=== PATIENT | female | born 1940 | race Caucasian/White ===

== ENCOUNTER 2021-11-17 08:25 | Inpatient (IN) | payer MEDICARE, OTHER, SELFPAY ==
--- NOTE | ~2021-11-17 | CT_ITS ---
PROCEDURE: CT-GUIDED BIOPSY, LIVER CLINICAL INFORMATION: Gallstones and hypodense mass right hepatic lobe adjacent to the gallbladder. Primary versus metastatic. COMPARISON: MRI, CT and ultrasound abdomen 11/17/2021. TECHNIQUE: Following explaining CT-guided right hepatic lobe mass biopsy procedure, benefits and risk, a written consent was obtained. Patient was placed supine on ultrasound stretcher and preliminary CT imaging was obtained through the upper abdomen. An optimal site was selected along the right lateral abdomen and marked on the skin with a marker. The marked site was cleaned and draped in the usual sterile manner. 1% lidocaine was injected at puncture site. Through a small skin incision an 18-gauge guide needle was advanced into the right hepatic lobe adjacent to lesion. Coaxially an 18-gauge biopsy needle was advanced and a 3-pass core biopsy was performed. Postprocedure needle was withdrawn and complete hemostasis achieved. Immediately after removing the needle patient had a vasovagal attack and recovered within [address] examination was performed using dose optimization techniques as appropriate, variously including the following: *Automated exposure control *Adjustment of mA and/or kV according to patient size (this includes techniques or standardized protocols for targeted exams where dose is matched to indication/reason for exam; i.e. extremities or head) *Use of iterative reconstruction technique DLP: 256 mGy-cm FINDINGS: On CT imaging there are multiple gallstones. There is a large right hepatic lobe hypodense adjacent mass. CT fluoroscopy-guided right hepatic lobe core biopsy was performed coaxially. Approximately 3 passes were performed and sent to lab in alcohol solution. There was no immediate bleeding seen. CT/CT biopsy liver IMPRESSION: Successful CT fluoroscopy-guided right hepatic lobe mass core biopsy performed. Patient had vasovagal reaction after removing the needle. Patient had full recovery in 10 to 15 minutes postprocedure.
--- NOTE | ~2021-11-17 | CT_ITS ---
EXAMINATION: CT ABDOMEN AND PELVIS WITHOUT CONTRAST CLINICAL INFORMATION: Elevated LFTs. Abdominal pain COMPARISON: Ultrasound abdomen same date TECHNIQUE: Multidetector volumetric imaging was performed from the superior aspect of the liver through the pubic symphysis. Sagittal and coronal reformatted images were obtained on the technologist's workstation. This CT examination was performed using dose optimization techniques as appropriate, variously including the following: *Automated exposure control *Adjustment of mA and/or kV according to patient size (this includes techniques or standardized protocols for targeted exams where dose is matched to indication/reason for exam; i.e. extremities or head) *Use of iterative reconstruction technique DLP: 693 mGy-cm FINDINGS: LUNG BASES: The visualized lung bases are unremarkable. LIVER, GALLBLADDER, AND BILIARY TREE: There is a very heterogeneous attenuation pattern observed, in the medial left lobe of the liver extending towards the gallbladder fossa. Similar findings extend towards the anterior right lobe of the liver. MRI with gadolinium is advised for further clarification. There is underlying steatosis. Abnormal. The gallbladder is distended and filled with multiple stones. Gallbladder wall thickening and pericholecystic fluid is seen in a pattern consistent with acute cholecystitis. PANCREAS: Unremarkable. SPLEEN: Unremarkable. ADRENAL GLANDS: Unremarkable. KIDNEYS AND URETERS: The kidneys are normal in size, shape, and attenuation. No hydronephrosis, hydroureter, or calculi seen. No perinephric stranding. BLADDER: Unremarkable. GASTROINTESTINAL TRACT: The small and large bowel are unremarkable. The appendix is unremarkable. ABDOMINAL WALL: No significant hernia is appreciated. LYMPH NODES: Normal. VASCULAR: Aorta atherosclerotic but nonaneurysmal. PELVIC VISCERA: Senescent uterus. No adnexal masses. OSSEOUS STRUCTURES: Degenerative changes in the lower lumbar spine and mid lumbar spine but no fracture. CT/CT abdomen pelvis wo con IMPRESSION: Abnormal gallbladder suggestive of acute cholecystitis. Abnormal attenuation, in the central portion of the liver suspicious for an infiltrative process. Cross-sectional imaging of the liver with gadolinium-enhanced MRI is advised. Fleischner guidelines were followed.
--- NOTE | ~2021-11-17 | US_ITS ---
EXAMINATION: US ABDOMEN LIMITED CLINICAL INFORMATION: Elevated LFTs and 10 pound weight loss. COMPARISON: CT abdomen and pelvis earlier same day TECHNIQUE: Real-time imaging of the right upper quadrant abdominal viscera. FINDINGS: PANCREAS: The pancreas appears unremarkable, without masses or ductal dilatation, with the exception of the tail which is obscured by bowel gas. A peripancreatic lymph node is present measuring 1.7 x 0.9 x 1.0 cm. LIVER: The liver is normal in size. The liver contour is normal. Parenchymal echogenicity is normal. There is a 4.1 x 4.9 x 5.4 cm heterogeneous slightly hypoechoic mass in the right lobe of the liver with slightly irregular margins. There is no intrahepatic biliary duct dilatation seen. GALLBLADDER: The gallbladder is filled with multiple shadowing calculi with a thickened wall of 0.6 cm. There is a positive Hernandez's sign with tenderness over the gallbladder with compression with the ultrasound probe COMMON BILE DUCT: Mildly dilated measuring 0.8 cm in diameter. RIGHT KIDNEY: Normal. No hydronephrosis. No renal calculi or focal parenchymal lesions. The kidney measures 11.7 cm in maximum dimension. FREE FLUID: None. US/US abdomen limited IMPRESSION: Findings consistent with acute cholecystitis in concordance with the findings seen on the CT scan performed earlier today. The right sided liver mass adjacent to the gallbladder appears more well-defined than it did on the CT scan. Differential diagnosis would include malignancy versus infection. As recommended previously, evaluation with pre and postcontrast dedicated liver MRI may be of utility if this is not biopsied.
--- NOTE | ~2021-11-17 | MR_ITS ---
EXAMINATION: MR ABDOMEN WITHOUT AND WITH CONTRAST/MRCP CLINICAL INFORMATION: Abnormal CT and LFTs. Prior imaging showed findings consistent with acute cholecystitis as well as abnormal liver mass adjacent to the gallbladder, question malignancy versus infection. COMPARISON: Ultrasound of the right upper quadrant dated 11/17/[address] scan of the abdomen and pelvis dated 11/17/2021. TECHNIQUE: An MRI scan of the abdomen was performed using multiple imaging sequences and imaging planes. As per the MRCP protocol, heavily T2-weighted 3-D high-resolution MRCP sequences were obtained in the coronal plane along with thin and thick slab coronal images and coronal MIP reconstructions on the technologist workstation under concurrent physician supervision. Gadavist 7.5 mL intravenous was given and postcontrast enhanced dynamic evaluation was performed. FINDINGS: Evaluation is limited due to motion artifact. MRCP sequences and several of the postcontrast sequences are of limited diagnostic quality. LIVER, GALLBLADDER, BILIARY TREE: As seen on the prior imaging, the gallbladder is markedly abnormal. There are multiple calcified gallstone seen within the gallbladder. There is diffusely gallbladder wall thickening with mucosal hyperenhancement and thick submucosal edema. There is a approximately 3 x 2 cm peripherally rim-enhancing collection seen in or abutting the gallbladder wall (series 10, image 58). There is extensive edema in the surrounding soft tissues, which is also seen extending into the liver. In the central segments 7 and 4, there are multiple large ill-defined and nearly confluent peripherally rim-enhancing T2 bright masses seen with an aggregate size of at least 4.5 x 5 x 5.5 cm. These masses demonstrate arterial phase peripheral rim enhancement, which persists on delayed phases without significant central enhancement seen. On the arterial phase images, there is peripheral and cortical enhancement of the liver, which subsides on delayed phases, suggesting hyperenhancement related to altered perfusion. There is mild central intrahepatic ductal dilatation with the proximal common bile duct measuring up to 0.9 cm. There is extrinsic mass effect upon the mid and distal common bile duct by the abnormal gallbladder. The distal common bile duct is decompressed and not well visualized. There is a benign T2 bright nonenhancing 1 cm peripheral cyst in segment 4 a (series 100, image 28). PANCREAS: Normal. No ductal dilatation, mass, or surrounding stranding. SPLEEN: Normal size and appearance. Splenic vein patent. ADRENAL GLANDS AND KIDNEYS: Adrenal glands normal. Kidneys bilaterally symmetric in size and function. No focal mass, hydronephrosis, or perinephric stranding. BOWEL LOOPS: Grossly within normal limits. ABDOMINAL WALL: There is a tiny fat-containing umbilical hernia. LYMPHOVASCULAR STRUCTURES: Abdominal aorta normal in caliber. No periaortic collections. No abdominal adenopathy or free fluid collection. BONES: There are T2 bright foci seen within the L4, L2, and L1 vertebral bodies, consistent with incidental vertebral hemangiomas. MR/MR abdomen wo/w con IMPRESSION: Markedly abnormal appearance of the gallbladder and adjacent liver as discussed above. In the acute setting and presence of gallstones, acute cholecystitis with associated pericholecystic abscesses with extension into the liver with multiple liver abscesses could have this appearance. However, in discussing this case with Dr. Hall, the patient's presentation is not typical for acute cholecystitis with no significant elevation in white count or fever noted. And in reviewing the ultrasound, the imaging appearance and the liver is not consistent with liver abscesses and would favor solid masses. In this setting, these findings are then highly suspicious for gallbladder cancer with metastatic disease to liver or cholangiocarcinoma with metastatic extension to the gallbladder. Superimposed infection cannot be excluded. Close clinical correlation and surgical consult is requested. This urgent result was discussed with Dr. Hall 11/17/2021, 6:41 PM and it was ascertained that the content and urgency of this report was understood at the time of direct communication.
[2021-11-17 08:52] VITALS: BP 146/70; PULSE 91; RESP 16; TEMP 36.6; O2SAT 96; BMI 32.8
[2021-11-17 09:19] LABS: MANUAL DIFF FLAG NO
[2021-11-17 09:23] LABS: Basophils Percent Auto 0.4 % (0-2); Eosinophils Absolute Auto 0.1 X10*3/uL (0.0-0.4); Eosinophils Percent Auto 1.6 % (0-4); Hematocrit 41.6 % (37.0-47.0); Hemoglobin 13.4 g/dl (12.0-16.0); Imm Gran Abs Auto 0.02 X10*3/uL (0.00-0.03); Imm Gran Pct Auto 0.3 % (0.0-0.4); Lymphocytes Absolute Auto 1.2 X10*3/uL (1.2-4.9); Lymphocytes Percent Auto 17.8 % (20-40); Mean Corpuscular HGB Conc 32.2 g/dl (31.0-35.0); Mean Corpuscular Hemoglobin 29.9 pg (27.0-33.0); Mean Corpuscular Volume 92.9 fL (80.0-98.0); Mean Platelet Volume 9.7 fL (9.4-12.3); Monocytes Absolute Auto 0.6 X10*3/uL (0.1-1.2); Monocytes Percent Auto 9.3 % (2-11); Neutrophils Absolute Auto 4.8 x10*3/uL (2.0-8.3); Neutrophils Percent Auto 70.6 % (45-73); Platelet Count 226 X10*3/uL (160-400); Red Blood Count 4.48 X10*6/uL (4.20-5.50); Red Cell Distribution Width 13.2 % (11.0-16.0); White Blood Count 6.8 X10*3/uL (4.8-10.8)
--- NOTE | 2021-11-17 09:32 | ED_ITS ---
HPI - General Adult General Chief complaint: General Medical Stated complaint: fever, chills, white stool, low back and abd pain Time Seen by Provider: 11/17/21 09:31 Source: patient and family (Daughter) Mode of arrival: ambulatory Limitations: no limitations History of Present Illness HPI narrative: 81 years old female brought in by her daughter for concern of generalized malaise. Patient's symptoms started 7 days ago with generalized malaise, subjective low- grade fever, intermittent bilateral upper abdominal discomfort, lost about 10 lb in 7 days, patient noted that her urine is turning dark and the stool is turning pale in color. No sick contacts, no recent travel, no recent use of antibiotic. No diarrhea. Related Data Allergies Allergy/AdvReac Type Severity Reaction Status Date / Time No Known Allergies Allergy Verified 11/17/21 08:54 Review of Systems Review of Systems: All other systems are reviewed and are negative Constitutional: Reports as per HPI and Reports no additional constitutional complaints Eyes: Reports as per HPI and Reports no additional eye complaints Reports system reviewed and no additional complaints, except as documented Cardiovascular: Reports as per HPI and Reports no additional cardiovascular complaints Respiratory: Reports as per HPI and Reports no additional respiratory complaints Gastrointestinal: Reports as per HPI and Reports no additional gastrointestinal complaints Genitourinary: Reports no additional female genitourinary complaints Musculoskeletal: Reports no additional musculoskeletal complaints Skin/Breast: Reports system reviewed and no additional complaints, except as docu Psychiatric: Reports no additional psychiatric complaints Endocrine: Reports no additional endocrine complaints Hematologic/Lymphatic: Reports no additional hematologic/lymphatic complaints Allergic/Immunologic: Reports no additional allergic/immunologic complaints Reports system reviewed and no additional complaints, except as documented and Reports Abnormal speech present [facility] [place] Social History Social History Advance Directives: No Advance Directives Information Provided: Yes Physical Exam ED Vital Signs: Vital Signs - 24 hr 11/17/21 08:52 11/17/21 11:52 Temperature 97.8 F 97.9 F Pulse Rate 91 82 Respiratory Rate 16 16 Blood Pressure 146/70 H 137/76 Pulse Oximetry 96 96 Oxygen Delivery Method Room Air Room Air BMI result Body Mass Index 32.8 Vital signs have been reviewed as appeared to be correct. Blood pressure normal. Heart rate normal. Respiration rate normal. Temperature normal. Oxygen saturation normal. Appearance: Alert. Oriented X3. No acute distress. Head: Normal external exam. Normocephalic. Atraumatic. No Munoz signs noted. No raccoon eyes noted Eyes: PERRLA. EOMI. Conjunctiva and sclera normal. Eyelids normal. ENT: TM's Normal. Pharynx normal. Uvula midline. Moist mucous membranes. No trismus noted. No drooling noted. No muffled voice noted. Neck: Normal inspection. Neck supple. FROM. No adenopathy. Thyroid Normal. No meningeal signs. No neck mass noted. CVS: Normal heart rate and rhythm. Heart sound normal. No murmurs noted. Pulses normal throughout. Respiratory: No respiratory distress. Painless inspiration. Breath sounds normal. No wheezes/rales/rhonchi noted. Chest nontender. No accessory muscle usage noted or decreased air movement noted. Abdomen: Soft and nontender. Bowel sounds normal in all 4 quadrants. No distention noted. No organomegaly noted. No visible injury noted. Back: No CVA tenderness. Full range of motion noted. Skin: Skin warm and dry. Normal skin color. Normal skin turgor. No rashes/lesions/lacerations noted. Extremities: No lower extremity edema. Extremities exhibit normal range of motion. Extremities nontender. Neuro: Oriented X 3. Cranial nerve exam: II-XII are grossly intact No motor deficit. No sensory deficit. Reflexes normal. 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 Mullen at the bedside recommended to get an MRI for more details of the hepatic mass that was found on the CT. Patient do not meet criteria for SIRS, will cover with empiric antibiotic. Case signed out to . Medical Decision Making Lab Data Lab results reviewed: Yes I reviewed the patient's lab results. Result diagrams: 11/17/21 09:15 11/17/21 09:15 Labs: Lab Results 11/17/21 11/17/21 11/17/21 Range/Units 09:15 09:15 12:00 WBC 6.8 (4.8-10.8) X10*3/uL RBC 4.48 (4.20-5.50) X10*6/uL Hgb 13.4 (12.0-16.0) g/dl Hct 41.6 (37.0-47.0) % MCV 92.9 (80.0-98.0) fL MCH 29.9 (27.0-33.0) pg MCHC 32.2 (31.0-35.0) g/dl RDW 13.2 (11.0-16.0) % Plt Count 226 (160-400) X10*3/uL MPV 9.7 (9.4-12.3) fL Immature Gran % (Auto) 0.3 (0.0-0.4) % Neut % (Auto) 70.6 (45-73) % Lymph % (Auto) 17.8 L (20-40) % [place] % (Auto) 9.3 (2-11) % Eos % (Auto) 1.6 (0-4) % Baso % (Auto) 0.4 (0-2) % Lymph # (Auto) 1.2 (1.2-4.9) X10*3/uL [place] # (Auto) 0.6 (0.1-1.2) X10*3/uL Eos # (Auto) 0.1 (0.0-0.4) X10*3/uL Baso # (Auto) 0.0 (0.0-0.2) X10*3/uL Abs Immat Gran (auto) 0.02 (0.00-0.03) X10*3/uL Absolute Neuts (auto) 4.8 (2.0-8.3) x10*3/uL Absolute Nucleated RBC 0.000 (0.0-0.012) X10*3/uL Nucleated RBC % (auto) 0.0 (0.0-0.2) /100WBC Sodium 141 (135-145) mmol/L Potassium 4.9 (3.3-5.1) mmol/L Chloride 109 H (96-108) mmol/L Carbon Dioxide 24 (22-29) mmol/L Anion Gap 13 (12-20) BUN 11 (9-16) mg/dL Creatinine 0.82 (0.5-1.4) mg/dL Estim Creat Clear Calc 50.7 Estimated GFR > 60 Random Glucose 100 (60-115) mg/dL Calcium 9.0 (8.4-10.2) mg/dL Total Bilirubin 4.7 H (0.0-1.0) mg/dL AST 491 H (5-31) U/L ALT 544 H (0-31) U/L Alkaline Phosphatase 888 H (39-117) U/L Total Protein 8.1 H (6.5-8.0) g/dL Albumin 4.1 (3.5-5.0) g/dL Urine Color YELLOW Urine Appearance CLEAR Urine pH 5.5 (5.0-8.0) Ur Specific [place] <= 1.005 (1.005-1.025) Urine Protein NEG (NEG-TRACE) MG/DL Urine Glucose (UA) NEG (NEG) MG/DL Urine Ketones NEG (NEG) MG/DL Urine Blood NEG (NEG) Urine Nitrite NEG (NEG) Ur Leukocyte Esterase NEG (NEG) COVID-19 (DAMION) (Negative) COVID-19 Clin Com 11/17/21 Range/Units 13:44 WBC (4.8-10.8) X10*3/uL RBC (4.20-5.50) X10*6/uL Hgb (12.0-16.0) g/dl Hct (37.0-47.0) % MCV (80.0-98.0) fL MCH (27.0-33.0) pg MCHC (31.0-35.0) g/dl RDW (11.0-16.0) % Plt Count (160-400) X10*3/uL MPV (9.4-12.3) fL Immature Gran % (Auto) (0.0-0.4) % Neut % (Auto) (45-73) % Lymph % (Auto) (20-40) % [place] % (Auto) (2-11) % Eos % (Auto) (0-4) % Baso % (Auto) (0-2) % Lymph # (Auto) (1.2-4.9) X10*3/uL [place] # (Auto) (0.1-1.2) X10*3/uL Eos # (Auto) (0.0-0.4) X10*3/uL Baso # (Auto) (0.0-0.2) X10*3/uL Abs Immat Gran (auto) (0.00-0.03) X10*3/uL Absolute Neuts (auto) (2.0-8.3) x10*3/uL Absolute Nucleated RBC (0.0-0.012) X10*3/uL Nucleated RBC % (auto) (0.0-0.2) /100WBC Sodium (135-145) mmol/L Potassium (3.3-5.1) mmol/L Chloride (96-108) mmol/L Carbon Dioxide (22-29) mmol/L Anion Gap (12-20) BUN (9-16) mg/dL Creatinine (0.5-1.4) mg/dL Estim Creat Clear Calc Estimated GFR Random Glucose (60-115) mg/dL Calcium (8.4-10.2) mg/dL Total Bilirubin (0.0-1.0) mg/dL AST (5-31) U/L ALT (0-31) U/L Alkaline Phosphatase (39-117) U/L Total Protein (6.5-8.0) g/dL Albumin (3.5-5.0) g/dL Urine Color Urine Appearance Urine pH (5.0-8.0) Ur Specific [place] (1.005-1.025) Urine Protein (NEG-TRACE) MG/DL Urine Glucose (UA) (NEG) MG/DL Urine Ketones (NEG) MG/DL Urine Blood (NEG) Urine Nitrite (NEG) Ur Leukocyte Esterase (NEG) COVID-19 (DAMION) Negative (Negative) COVID-19 Clin Com See Note Imaging Data CT abdomen and pelvis: Attestation: I personally reviewed and interpreted this imaging study as follows: Radiologist's impression: Abnormal gallbladder suggestive of acute cholecystitis. Abnormal attenuation, in the central portion of the liver suspicious for an infiltrative process. Cross-sectional imaging of the liver with gadolinium-enhanced MRI is advised.? ? Abdominal ultrasound: Attestation: I personally reviewed and interpreted this imaging study as follows: Radiologist's impression: Findings consistent with acute cholecystitis in concordance with the findings seen on the CT scan performed earlier today. The right sided liver mass adjacent to the gallbladder appears more well-defined than it did on the CT scan. Differential diagnosis would include malignancy versus infection. As recommended previously, evaluation with pre and postcontrast dedicated liver MRI may be of utility if this is not biopsied. Discharge Plan Discharge Clinical Impression: Liver mass, Acute cholecystitis, Elevated liver function tests Patient Disposition: Admitted As Inpatient
[2021-11-17 09:57] LABS: Alanine Aminotransferase 544 U/L (0-31); Albumin Level 4.1 g/dL (3.5-5.0); Alkaline Phosphatase 888 U/L (39-117); Anion Gap 13 (12-20); Aspartate Amino Transferase 491 U/L (5-31); Bilirubin Total 4.7 mg/dL (0.0-1.0); Blood Urea Nitrogen 11 mg/dL (9-16); Carbon Dioxide 24 mmol/L (22-29); Chloride 109 mmol/L (96-108); Creatinine Clr Calc Pharmacy 50.7; Estimated Glomerular Filt Rate > 60; Glucose Random 100 mg/dL (60-115); Potassium 4.9 mmol/L (3.3-5.1); Sodium 141 mmol/L (135-145); Total Protein 8.1 g/dL (6.5-8.0)
[2021-11-17] MEDS: 0.9 % Sodium Chloride 1,000 ML 999 ML IV (10:04)
[2021-11-17 11:52] VITALS: BP 137/76; PULSE 82; RESP 16; TEMP 36.6; O2SAT 96
[2021-11-17 12:09] LABS: Appearance Urine CLEAR; Color Urine YELLOW; Glucose Urine UA NEG (NEG); Leukocyte Esterase Urine NEG (NEG); Nitrite Urine NEG (NEG); PH 5.5 (5.0-8.0); Specific Gravity - Urine <= 1.005 (1.005-1.025); Urine Blood NEG (NEG); Urine Ketones NEG (NEG); Urine Protein NEG (NEG-TRACE)
[2021-11-17 14:24] LABS: COVID-19 Test Negative (Negative)
[2021-11-17 18:03] LABS: Lactic Acid 0.6 mmol/L (0.5-2.0)
[2021-11-17 18:25] VITALS: BP 150/59; PULSE 86; RESP 16; TEMP 36.8; O2SAT 98
--- NOTE | 2021-11-17 18:41 | ED.GENADULT ---
HPI - General Adult General Chief complaint: General Medical Stated complaint: fever, chills, white stool, low back and abd pain Time Seen by Provider: 11/17/21 09:31 Source: patient and family (Daughter) Mode of arrival: ambulatory Limitations: no limitations Related Data Home Medications Medication Instructions Recorded Confirmed amitriptyline 25 mg tablet 1 tab DAILY 11/17/21 11/17/21 celecoxib 200 mg capsule 1 cap PO DAILY 11/17/21 11/17/21 warfarin 7.5 mg tablet 7.5 mg PO DAILY 11/17/21 11/17/21 Allergies Allergy/AdvReac Type Severity Reaction Status Date / Time No Known Allergies Allergy Verified 11/17/21 08:54 PMFSH Social History Social History Advance Directives: No Advance Directives Information Provided: Yes Physical Exam ED Vital Signs: Vital Signs - 24 hr 11/17/21 08:52 11/17/21 11:52 11/17/21 18:25 Temperature 97.8 F 97.9 F 98.3 F Pulse Rate 91 82 86 Respiratory Rate 16 16 16 Blood Pressure 146/70 H 137/76 150/59 H Pulse Oximetry 96 96 98 Oxygen Delivery Method Room Air Room Air Room Air 11/17/21 21:10 Temperature 97.9 F Pulse Rate 91 Respiratory Rate 16 Blood Pressure 142/68 H Pulse Oximetry 95 Oxygen Delivery Method Room Air BMI result Body Mass Index 32.8 Medical Decision Making Lab Data Result diagrams: 11/17/21 09:15 11/17/21 09:15 Labs: Lab Results 11/17/21 11/17/21 11/17/21 Range/Units 09:15 09:15 12:00 WBC 6.8 (4.8-10.8) X10*3/uL RBC 4.48 (4.20-5.50) X10*6/uL Hgb 13.4 (12.0-16.0) g/dl Hct 41.6 (37.0-47.0) % MCV 92.9 (80.0-98.0) fL MCH 29.9 (27.0-33.0) pg MCHC 32.2 (31.0-35.0) g/dl RDW 13.2 (11.0-16.0) % Plt Count 226 (160-400) X10*3/uL MPV 9.7 (9.4-12.3) fL Immature Gran % (Auto) 0.3 (0.0-0.4) % Neut % (Auto) 70.6 (45-73) % Lymph % (Auto) 17.8 L (20-40) % [place] % (Auto) 9.3 (2-11) % Eos % (Auto) 1.6 (0-4) % Baso % (Auto) 0.4 (0-2) % Lymph # (Auto) 1.2 (1.2-4.9) X10*3/uL [place] # (Auto) 0.6 (0.1-1.2) X10*3/uL Eos # (Auto) 0.1 (0.0-0.4) X10*3/uL Baso # (Auto) 0.0 (0.0-0.2) X10*3/uL Abs Immat Gran (auto) 0.02 (0.00-0.03) X10*3/uL Absolute Neuts (auto) 4.8 (2.0-8.3) x10*3/uL Absolute Nucleated RBC 0.000 (0.0-0.012) X10*3/uL Nucleated RBC % (auto) 0.0 (0.0-0.2) /100WBC Sodium 141 (135-145) mmol/L Potassium 4.9 (3.3-5.1) mmol/L Chloride 109 H (96-108) mmol/L Carbon Dioxide 24 (22-29) mmol/L Anion Gap 13 (12-20) BUN 11 (9-16) mg/dL Creatinine 0.82 (0.5-1.4) mg/dL Estim Creat Clear Calc 50.7 Estimated GFR > 60 Random Glucose 100 (60-115) mg/dL Lactic Acid (0.5-2.0) mmol/L Calcium 9.0 (8.4-10.2) mg/dL Total Bilirubin 4.7 H (0.0-1.0) mg/dL AST 491 H (5-31) U/L ALT 544 H (0-31) U/L Alkaline Phosphatase 888 H (39-117) U/L Total Protein 8.1 H (6.5-8.0) g/dL Albumin 4.1 (3.5-5.0) g/dL Urine Color YELLOW Urine Appearance CLEAR Urine pH 5.5 (5.0-8.0) Ur Specific [place] <= 1.005 (1.005-1.025) Urine Protein NEG (NEG-TRACE) MG/DL Urine Glucose (UA) NEG (NEG) MG/DL Urine Ketones NEG (NEG) MG/DL Urine Blood NEG (NEG) Urine Nitrite NEG (NEG) Ur Leukocyte Esterase NEG (NEG) COVID-19 (DAMION) (Negative) COVID-19 Clin Com 11/17/21 11/17/21 Range/Units 13:44 17:36 WBC (4.8-10.8) X10*3/uL RBC (4.20-5.50) X10*6/uL Hgb (12.0-16.0) g/dl Hct (37.0-47.0) % MCV (80.0-98.0) fL MCH (27.0-33.0) pg MCHC (31.0-35.0) g/dl RDW (11.0-16.0) % Plt Count (160-400) X10*3/uL MPV (9.4-12.3) fL Immature Gran % (Auto) (0.0-0.4) % Neut % (Auto) (45-73) % Lymph % (Auto) (20-40) % [place] % (Auto) (2-11) % Eos % (Auto) (0-4) % Baso % (Auto) (0-2) % Lymph # (Auto) (1.2-4.9) X10*3/uL [place] # (Auto) (0.1-1.2) X10*3/uL Eos # (Auto) (0.0-0.4) X10*3/uL Baso # (Auto) (0.0-0.2) X10*3/uL Abs Immat Gran (auto) (0.00-0.03) X10*3/uL Absolute Neuts (auto) (2.0-8.3) x10*3/uL Absolute Nucleated RBC (0.0-0.012) X10*3/uL Nucleated RBC % (auto) (0.0-0.2) /100WBC Sodium (135-145) mmol/L Potassium (3.3-5.1) mmol/L Chloride (96-108) mmol/L Carbon Dioxide (22-29) mmol/L Anion Gap (12-20) BUN (9-16) mg/dL Creatinine (0.5-1.4) mg/dL Estim Creat Clear Calc Estimated GFR Random Glucose (60-115) mg/dL Lactic Acid 0.6 (0.5-2.0) mmol/L Calcium (8.4-10.2) mg/dL Total Bilirubin (0.0-1.0) mg/dL AST (5-31) U/L ALT (0-31) U/L Alkaline Phosphatase (39-117) U/L Total Protein (6.5-8.0) g/dL Albumin (3.5-5.0) g/dL Urine Color Urine Appearance Urine pH (5.0-8.0) Ur Specific [place] (1.005-1.025) Urine Protein (NEG-TRACE) MG/DL Urine Glucose (UA) (NEG) MG/DL Urine Ketones (NEG) MG/DL Urine Blood (NEG) Urine Nitrite (NEG) Ur Leukocyte Esterase (NEG) COVID-19 (DAMION) Negative (Negative) COVID-19 Clin Com See Note Discharge Plan Discharge Clinical Impression: Cholangiocarcinoma, Liver mass, Elevated liver function tests Patient Disposition: Admitted As Inpatient
[2021-11-17] MEDS: Piperacillin Sodium/Tazobactam 3.375 GM in 0.9 % Sodium Chloride 50 ML IV (19:35)
[2021-11-17 21:10] VITALS: BP 142/68; PULSE 91; RESP 16; TEMP 36.6; O2SAT 95
--- NOTE | 2021-11-17 21:53 | PHA.MEDREC ---
Pharmacy Consult ? Medication Reconciliation Pharmacy has completed the medication reconciliation.
[2021-11-17 23:27] VITALS: BP 120/83; PULSE 70; RESP 16; TEMP 36.5; O2SAT 100
--- NOTE | 2021-11-17 23:31 | PM.IMHP ---
History of Present Illness Date of Service: 11/17/21 Chief Complaint: Generalized weakness 81-year-old female with a past medical history of depression, history of DVT on Coumadin; presented to the hospital today with a chief complaint of generalized weakness. Patient reports that over the past 1 week she has been not feeling well, generally weak and tired; mentions that she has intermittent episodes of subjective fevers associated with chills. Also mentioned that she noticed her urine is dark and the stool is pale; reports she has decreased appetite and has lost 10 lb in the past 7 days; denies any abdominal discomfort. Denies any nausea vomiting diarrhea. Denies any urinary frequency urgency or dysuria. Patient denies any cough or sputum production. Mentioned that her daughter noticed that her eyes are becoming yellow, jaundiced; hence decided to come to the ER for further evaluation. Patient denies any chest pain palpitations lightheadedness or dizziness. Review of all other systems is negative except mentioned above ER course: Per ER team patient noted to be icteric; on labs noted to have elevated liver enzymes; CT scan consistent with possible cholecystitis; patient was empirically given Zosyn. Discussed with general surgery who evaluated the patient and mentioned that it is less likely cholecystitis; also concern for possible liver lesions consistent with malignancy. Recommended admission to the medicine service for further evaluation. [facility] Medical History (Updated 11/28/21 @ 12:55 by Stacey More MD) Depression DVT (deep venous thrombosis) Skin cancer of nose (~04/05/21) Family History (Updated 11/27/21 @ 10:29 by Caro Curry) Brother Lung cancer Father Pertinent family history: Father: COPD Aunt: carcinoma breast Social History (Updated 11/27/21 @ 10:31 by Caro Curry) Household Members: Spouse Housing: Condominium Do you presently have visiting nurse or other home services: No Patient Tobacco Use Status: Never used Tobacco Second Hand Smoke Exposure: No Use of substances other than those prescribed or required for medical reasons: No Have you been hit, kicked, punched, or otherwise hurt by someone within the past year? If so, by whom?: No Do you feel safe in your current relationship?: Yes Do you have thoughts of harming others: None Do you have a plan to hurt others: No Plan Do you have the means to hurt others: No Recently lost weight without trying: Yes How much weight loss: 2-13 pounds Eating poorly because of decreased appetite: Yes Nutrition screen score: 4 service: No Current occupational status: retired Meds Allergies Allergy/AdvReac Type Severity Reaction Status Date / Time No Known Allergies Allergy Verified 11/17/21 08:54 Active Medications: Current Medications Piperacillin Sod/Tazobactam (Sod 3.375 gm/ Sodium Chloride) 50 mls @ 100 mls/hr IV Q6H [facility] Melatonin (Melatonin 3 Mg Tablet) 6 mg PO BEDTIME PRN PRN Reason: Insomnia Senna (Sennosides 8.6 Mg Tablet) 17.2 mg PO BEDTIME PRN PRN Reason: Constipation Sodium Chloride (0.9 % Sodium Chloride Flush 3 Ml Syringe) 3 ml IVFLUSH QSHIFT [facility] Home Medications Medication Instructions Recorded Confirmed Last Taken Type amitriptyline 25 mg tablet 1 tab PO BEDTIME 11/17/21 11/27/21 Unknown History apixaban 2.5 mg tablet (Eliquis) 1 tab PO BID 11/27/21 11/27/21 Unknown History Physical Exam Vital Signs and Narrative: Vital Signs: Last Vital Signs Temp 97.9 F 11/17/21 21:10 Pulse 91 11/17/21 21:10 Resp 16 11/17/21 21:10 BP 142/68 H 11/17/21 21:10 Pulse Ox 95 11/17/21 21:10 O2 Del Method 11/17/21 21:10 BMI result Body Mass Index 32.8 Gen: Appears be in no acute distress HEENT: NCAT, Moist mucosa. Icteric sclera Pulmonary: Vesicular breath sounds, fair air entry CVS: Normal S1-S2 Abdomen: BS+, Soft, Nontender Extremities: Warm well perfused Neuro: Alert and awake. Oriented x3. Grossly nonfocal. Results Labs CBC and Chem 7: 11/20/21 11:20 11/20/21 11:20 Labs: Laboratory Results - last 24 hr 11/17/21 11/17/21 11/17/21 09:15 09:15 12:00 MCV 92.9 MCH 29.9 MCHC 32.2 RDW 13.2 Plt Count 226 MPV 9.7 Immature Gran % (Auto) 0.3 Neut % (Auto) 70.6 Lymph % (Auto) 17.8 L [place] % (Auto) 9.3 Eos % (Auto) 1.6 Baso % (Auto) 0.4 Lymph # (Auto) 1.2 [place] # (Auto) 0.6 Eos # (Auto) 0.1 Baso # (Auto) 0.0 Abs Immat Gran (auto) 0.02 Absolute Neuts (auto) 4.8 Absolute Nucleated RBC 0.000 Nucleated RBC % (auto) 0.0 Anion Gap 13 Estim Creat Clear Calc 50.7 Estimated GFR > 60 Random Glucose 100 Lactic Acid Calcium 9.0 Total Bilirubin 4.7 H AST 491 H ALT 544 H Alkaline Phosphatase 888 H Total Protein 8.1 H Albumin 4.1 Urine Color YELLOW Urine Appearance CLEAR Urine pH 5.5 Ur Specific [place] <= 1.005 Urine Protein NEG Urine Glucose (UA) NEG Urine Ketones NEG Urine Blood NEG Urine Nitrite NEG Ur Leukocyte Esterase NEG COVID-19 (DAMION) COVID-19 Clin Com 11/17/21 11/17/21 13:44 17:36 MCV MCH MCHC RDW Plt Count MPV Immature Gran % (Auto) Neut % (Auto) Lymph % (Auto) [place] % (Auto) Eos % (Auto) Baso % (Auto) Lymph # (Auto) [place] # (Auto) Eos # (Auto) Baso # (Auto) Abs Immat Gran (auto) Absolute Neuts (auto) Absolute Nucleated RBC Nucleated RBC % (auto) Anion Gap Estim Creat Clear Calc Estimated GFR Random Glucose Lactic Acid 0.6 Calcium Total Bilirubin AST ALT Alkaline Phosphatase Total Protein Albumin Urine Color Urine Appearance Urine pH Ur Specific [place] Urine Protein Urine Glucose (UA) Urine Ketones Urine Blood Urine Nitrite Ur Leukocyte Esterase COVID-19 (DAMION) Negative COVID-19 Clin Com See Note Imaging Radiologist's Impressions: Impressions Abdomen/Pelvis CT 11/17/21 10:30 IMPRESSION: Abnormal gallbladder suggestive of acute cholecystitis. Abnormal attenuation, in the central portion of the liver suspicious for an infiltrative process. Cross-sectional imaging of the liver with gadolinium-enhanced MRI is advised. Fleischner guidelines were followed. Abdomen Ultrasound 11/17/21 10:52 IMPRESSION: Findings consistent with acute cholecystitis in concordance with the findings seen on the CT scan performed earlier today. The right sided liver mass adjacent to the gallbladder appears more well-defined than it did on the CT scan. Differential diagnosis would include malignancy versus infection. As recommended previously, evaluation with pre and postcontrast dedicated liver MRI may be of utility if this is not biopsied. Abdomen MRI 11/17/21 16:36 IMPRESSION: Markedly abnormal appearance of the gallbladder and adjacent liver as discussed above. In the acute setting and presence of gallstones, acute cholecystitis with associated pericholecystic abscesses with extension into the liver with multiple liver abscesses could have this appearance. However, in discussing this case with Dr. Hall, the patient's presentation is not typical for acute cholecystitis with no significant elevation in white count or fever noted. And in reviewing the ultrasound, the imaging appearance and the liver is not consistent with liver abscesses and would favor solid masses. In this setting, these findings are then highly suspicious for gallbladder cancer with metastatic disease to liver or cholangiocarcinoma with metastatic extension to the gallbladder. Superimposed infection cannot be excluded. Close clinical correlation and surgical consult is requested. This urgent result was discussed with Dr. Hall 11/17/2021, 6:41 PM and it was ascertained that the content and urgency of this report was understood at the time of direct communication. Assessment and Plan (1) Elevated liver function tests: Status: Acute Plan 81-year-old female with a past medical history of depression, history of DVT on Coumadin; presented to the hospital today with a chief complaint of generalized weakness. Noted to have elevated liver enzymes; MRI of the abdomen consistent with possible acute cholecystitis versus abscesses versus malignancy. Admitted for further management. Transaminitis: Abdominal MRI: Gallstones ++; acute cholecystitis/pericholecystic abscess with extension into the liver with multiple liver abscess versus multiple liver solid masses. Questioning cholangiocarcinoma with metastatic extension into the gallbladder. Superimposed infection cannot be ruled out. Patient empirically covered with Zosyn Patient was evaluated with general surgery in the ER Will also consult Gastroenterology and Oncology for further recommendations. Will obtain AFP and CEA levels Acute hepatitis panel Follow-up cultures History of DVT: Patient on Coumadin. INR therapeutic at 2.3 on presentation. Patient has follow-up INR in the morning was noted to be 8.2. Hold Coumadin. Likely in the setting of liver disease. DVT prophylaxis: Patient on Coumadin Code status: Full code Quality Stroke Does the patient have a stroke diagnosis?: No VTE Prior VTE?: No VTE Risk Level:: Medical - moderate - high VTE Device Contraindication: Treatment Not Indicated VTE Drug Contraindication: N/A - Med Ordered
[2021-11-18] VITALS (8 sets, daily range): BP systolic 116–143; BP diastolic 58–79; PULSE 72–94; RESP 14–18; TEMP 36.5–37.2; O2SAT 93–98
[2021-11-18] MEDS: Piperacillin Sodium/Tazobactam 3.375 GM in 0.9 % Sodium Chloride 50 ML IV ×3 (00:28→17:24)
[2021-11-18 04:58] LABS: HBS Num1 1.87 mIU/mL (0-7.99); HBsAGNum1 0.21 S/CO (0.00-0.99); Hepatitis A Antibody IgM 0.12 Index (0-0.79); Hepatitis B Core Antibody Nonreactive (Nonreactive); Hepatitis B Surface Antigen Negative (Negative); ~Hepatitis A Antibody IgM Nonreactive (Nonreactive); ~Hepatitis B Surface Antibody NONREACTIVE (Nonreactive); ~Hepatitis C Antibody Nonreactive (Nonreactive)
[2021-11-18 05:09] LABS: MANUAL DIFF FLAG NO
[2021-11-18 05:10] LABS: Basophils Percent Auto 0.4 % (0-2); Eosinophils Absolute Auto 0.1 X10*3/uL (0.0-0.4); Hematocrit 36.3 % (37.0-47.0); Hemoglobin 12.1 g/dl (12.0-16.0); Imm Gran Abs Auto 0.02 X10*3/uL (0.00-0.03); Imm Gran Pct Auto 0.3 % (0.0-0.4); Lymphocytes Percent Auto 12.6 % (20-40); Mean Corpuscular HGB Conc 33.3 g/dl (31.0-35.0); Mean Corpuscular Hemoglobin 30.4 pg (27.0-33.0); Mean Corpuscular Volume 91.2 fL (80.0-98.0); Mean Platelet Volume 9.9 fL (9.4-12.3); Monocytes Absolute Auto 0.7 X10*3/uL (0.1-1.2); Monocytes Percent Auto 8.6 % (2-11); Neutrophils Percent Auto 77.1 % (45-73); Platelet Count 208 X10*3/uL (160-400); Red Blood Count 3.98 X10*6/uL (4.20-5.50); Red Cell Distribution Width 13.1 % (11.0-16.0); White Blood Count 7.8 X10*3/uL (4.8-10.8)
[2021-11-18 05:26] LABS: Prothrombin Time 100.1 SEC (10.0-13.1)
[2021-11-18 05:46] LABS: Anion Gap 12 (12-20); Blood Urea Nitrogen 7 mg/dL (9-16); Calcium 8.3 mg/dL (8.4-10.2); Carbon Dioxide 21 mmol/L (22-29); Chloride 109 mmol/L (96-108); Creatinine Clr Calc Pharmacy 59.4; Estimated Glomerular Filt Rate > 60; Glucose Random 95 mg/dL (60-115); Potassium 4.1 mmol/L (3.3-5.1); Sodium 138 mmol/L (135-145)
[2021-11-18] MEDS: Phytonadione (Vit K1) 2.5 MG in 0.9 % Sodium Chloride 50 ML 50.25 MG IV ×2 (06:08→09:43)
[2021-11-18 06:12] LABS: Alanine Aminotransferase 451 U/L (0-31); Albumin Level 3.5 g/dL (3.5-5.0); Alkaline Phosphatase 856 U/L (39-117); Aspartate Amino Transferase 423 U/L (5-31); Bilirubin Direct 3.5 mg/dL (0.0-0.5); Bilirubin Total 4.6 mg/dL (0.0-1.0); Total Protein 6.8 g/dL (6.5-8.0)
--- NOTE | 2021-11-18 06:13 | PC.NURSE ---
critical results reported YONI rogers
[2021-11-18] MEDS: Amitriptyline HCl 25 MG TABLET PO ×2 (08:59→21:55)
[2021-11-18] MEDS: 0.9 % Sodium Chloride Flush 3 ML SYRINGE IVFLUSH ×2 (09:01→17:30)
--- NOTE | 2021-11-18 09:04 | PC.NURSE ---
PATIENT A/O X4 . PEARRLA . HEART BEAT REGULAR AT 80 BEATS . LUNGS CLEAR . SKIN WARM AND DRY WITH YELLOW HUE . ABDOMEN SOFT , NON DISTENDED . POSITIVE BOWEL SOUNDS IN ALL FOUR QUADRANTS .PATIENT REPORTS LIGHT WHITE STOOLS . PALPABLE PULSES IN LOWER EXTREMITIES . PAIN LEVEL 5/10 . PATIENT REPOSITIONED IN BED . PATIENT AWARE OF PLAN OF CARE FOR ADMISSION .
--- NOTE | 2021-11-18 10:35 | HO.PM.IMPN ---
Subjective Subjective Date of Service: 11/18/21 Interval History: Pt seen + examined with her and grandson at bedside. She's fully aware that there is a high likelihood she has metastatic CA. Her baseline functional capacity is excellent (she dances daily). Her focus is quality of life. She is eager to undergo diagnostic procedures but does not know what she would decide about chemotherapy yet. Minimal abd discomfort; just fullness Physical Exam Vital Signs: Vital Signs: Last Vital Signs Temp 98.6 F 11/18/21 09:15 Pulse 83 11/18/21 09:15 Resp 16 11/18/21 09:15 BP 116/65 11/18/21 09:15 Pulse Ox 96 11/18/21 09:15 O2 Del Method 11/18/21 09:15 BMI result Body Mass Index 32.8 Gen: in no acute distress HEENT: sclera icteric, moist mucus membranes Neck: supple Lungs: clear to auscultation bilaterally Heart: regular rate and rhythm, no murmurs Abd: soft, non-tender, non-distended Ext: no edema Skin: warm/well-perfused, jaundiced Neuro: alert and oriented x3, no focal findings Psych: appropriate affect Objective Data Active Medications Amitriptyline HCl (Amitriptyline Hcl 25 Mg Tablet) 25 mg PO DAILY [facility] Last Admin: 11/18/21 08:59 Dose: 25 mg Documented By: JUAN Piperacillin Sod/Tazobactam (Sod 3.375 gm/ Sodium Chloride) 50 mls @ 100 mls/hr IV Q8H [facility] Last Infusion: 11/18/21 09:43 Dose: 0 mls/hr Documented By: JUAN Melatonin (Melatonin 3 Mg Tablet) 6 mg PO BEDTIME PRN PRN Reason: Insomnia Senna (Sennosides 8.6 Mg Tablet) 17.2 mg PO BEDTIME PRN PRN Reason: Constipation Sodium Chloride (0.9 % Sodium Chloride Flush 3 Ml Syringe) 3 ml IVFLUSH QSHIFT [facility] Last Admin: 11/18/21 09:01 Dose: 3 ml Documented By: JUAN Labs CBC & Chem 7: 11/18/21 05:06 11/18/21 05:07 Labs: Laboratory Results - last 24 hr 11/17/21 11/17/21 11/17/21 12:00 13:44 17:36 MCV MCH MCHC RDW Plt Count MPV Immature Gran % (Auto) Neut % (Auto) Lymph % (Auto) [place] % (Auto) Eos % (Auto) Baso % (Auto) Lymph # (Auto) [place] # (Auto) Eos # (Auto) Baso # (Auto) Abs Immat Gran (auto) Absolute Neuts (auto) Absolute Nucleated RBC Nucleated RBC % (auto) PT INR Anion Gap Estim Creat Clear Calc Estimated GFR Random Glucose Lactic Acid 0.6 Calcium Total Bilirubin Direct Bilirubin AST ALT Alkaline Phosphatase Total Protein Albumin Carcinoembryonic Ag Urine Color YELLOW Urine Appearance CLEAR Urine pH 5.5 Ur Specific [place] <= 1.005 Urine Protein NEG Urine Glucose (UA) NEG Urine Ketones NEG Urine Blood NEG Urine Nitrite NEG Ur Leukocyte Esterase NEG COVID-19 (DAMION) Negative COVID-19 Clin Com See Note Hepatitis A IgM Ab Hep Bs Antigen Hep Bs Antibody Hep B Core Total Ab Hepatitis C Ab (EIA) 11/18/21 11/18/21 11/18/21 00:26 00:26 05:06 MCV 91.2 MCH 30.4 MCHC 33.3 RDW 13.1 Plt Count 208 MPV 9.9 Immature Gran % (Auto) 0.3 Neut % (Auto) 77.1 H Lymph % (Auto) 12.6 L [place] % (Auto) 8.6 Eos % (Auto) 1.0 Baso % (Auto) 0.4 Lymph # (Auto) 1.0 L [place] # (Auto) 0.7 Eos # (Auto) 0.1 Baso # (Auto) 0.0 Abs Immat Gran (auto) 0.02 Absolute Neuts (auto) 6.0 Absolute Nucleated RBC 0.000 Nucleated RBC % (auto) 0.0 PT INR Anion Gap Estim Creat Clear Calc Estimated GFR Random Glucose Lactic Acid Calcium Total Bilirubin Direct Bilirubin AST ALT Alkaline Phosphatase Total Protein Albumin Carcinoembryonic Ag 2.80 Urine Color Urine Appearance Urine pH Ur Specific [place] Urine Protein Urine Glucose (UA) Urine Ketones Urine Blood Urine Nitrite Ur Leukocyte Esterase COVID-19 (DAMION) COVID-19 Clin Com Hepatitis A IgM Ab Nonreactive Hep Bs Antigen Negative Hep Bs Antibody NONREACTIVE Hep B Core Total Ab Nonreactive Hepatitis C Ab (EIA) Nonreactive 11/18/21 11/18/21 11/18/21 05:07 05:07 05:07 MCV MCH MCHC RDW Plt Count MPV Immature Gran % (Auto) Neut % (Auto) Lymph % (Auto) [place] % (Auto) Eos % (Auto) Baso % (Auto) Lymph # (Auto) [place] # (Auto) Eos # (Auto) Baso # (Auto) Abs Immat Gran (auto) Absolute Neuts (auto) Absolute Nucleated RBC Nucleated RBC % (auto) PT 100.1 H INR 8.0 H* Anion Gap 12 Estim Creat Clear Calc 59.4 Estimated GFR > 60 Random Glucose 95 Lactic Acid Calcium 8.3 L D Total Bilirubin 4.6 H Direct Bilirubin 3.5 H AST 423 H ALT 451 H Alkaline Phosphatase 856 H Total Protein 6.8 Albumin 3.5 Carcinoembryonic Ag Urine Color Urine Appearance Urine pH Ur Specific [place] Urine Protein Urine Glucose (UA) Urine Ketones Urine Blood Urine Nitrite Ur Leukocyte Esterase COVID-19 (DAMION) COVID-19 Clin Com Hepatitis A IgM Ab Hep Bs Antigen Hep Bs Antibody Hep B Core Total Ab Hepatitis C Ab (EIA) Assessment and Plan (1) Liver mass: Status: Acute 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 # gallbladder/liver mass - GI, Heme/Onc, and Gen Surg consults pending # supratherapeutic INR # remote hx DVT - give 5 mg vitamin K IV today to reverse warfarin in preparation for diagnostic procedure # VTE ppx: SCDs In my clinical judgment, the patient requires continued hospitalization for the following reasons: biopsy, elevated INR Quality Stroke Does the patient have a stroke diagnosis?: No VTE Prior VTE?: No VTE Risk Level:: Medical - moderate - high VTE Device Contraindication: Treatment Not Indicated VTE Drug Contraindication: N/A - Med Ordered
--- NOTE | 2021-11-18 10:40 | PC.NURSE ---
AT BEDSIDE PATIENT AWARE AT TIME CANCER HAS METS TO PROGRESS TO TERMINAL PATIENT AWARE OF TIME FRAME .
--- NOTE | 2021-11-18 11:31 | PM.HEMONCCN ---
Subjective - Subjective Chief complaint: Jaundice, weakness Patient: new to practice Consult date: 11/18/21 Requesting Physician: Dr Gan Primary Care Provider: Unknown Physician HPI - Consult Narrative Reason for consult: Probable cancer of liver Narrative: Caitlyn Hutchison is a 81 year old woman who presented to the ED with worsening weakness, loss of appetite and weight loss. This is been going on for a few weeks but she noticed that she was getting yellow late last week. Her urine has been dark colored and his stools almost white in color. She reports a dull ache in her right lower posterior back. She denies dysuria or frequency. No abdominal pain nausea or emesis. She has been quite healthy up until now. She has had screening mammography but never a screening colonoscopy. Brother of lung cancer, he was a smoker. She has 4 children. She lives at home with her . She never smoked. 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 Review of Systems - Constitutional Reports as per HPI, Reports no additional constitutional complaints, Reports fatigue, Reports lack of energy, Reports night sweats, Reports poor appetite, Reports weakness, Reports weight loss - Cardiovascular Reports no additional cardiovascular complaints - Respiratory Reports no additional respiratory complaints - Gastrointestinal Reports no additional gastrointestinal complaints Oncology Screenings - ECOG Performance Status ECOG Performance Status: 2 [facility] Medical History: Medical History (Last Updated 11/18/21 @ 11:48 by Stacey More MD) Depression DVT (deep venous thrombosis) Family History: Family History (Last Updated 11/18/21 @ 11:49 by Stacey More MD) Brother Lung cancer Social History: Social History (Last Reviewed 11/17/21 @ 09:36 by Benoit Barker MD) Advance Directives: Advance Directives: No Advance Directives Information Provided: Yes Home Medications and Allergies Current Medications: Current Medications Amitriptyline HCl (Amitriptyline Hcl 25 Mg Tablet) 25 mg PO DAILY [facility] Last Admin: 11/18/21 08:59 Dose: 25 mg Piperacillin Sod/Tazobactam (Sod 3.375 gm/ Sodium Chloride) 50 mls @ 100 mls/hr IV Q8H [facility] Last Infusion: 11/18/21 09:43 Dose: Infused Melatonin (Melatonin 3 Mg Tablet) 6 mg PO BEDTIME PRN PRN Reason: Insomnia Senna (Sennosides 8.6 Mg Tablet) 17.2 mg PO BEDTIME PRN PRN Reason: Constipation Sodium Chloride (0.9 % Sodium Chloride Flush 3 Ml Syringe) 3 ml IVFLUSH QSHIFT [facility] Last Admin: 11/18/21 09:01 Dose: 3 ml Home Medications Medication Instructions Recorded Confirmed Type amitriptyline 25 mg tablet 1 tab DAILY 11/17/21 11/17/21 History celecoxib 200 mg capsule 1 cap PO DAILY 11/17/21 11/17/21 History warfarin 7.5 mg tablet 7.5 mg PO DAILY 11/17/21 11/17/21 History Allergies Allergy/AdvReac Type Severity Reaction Status Date / Time No Known Allergies Allergy Verified 11/17/21 08:54 Physical Exam Vital signs: Vital Signs Temp 98.6 F 11/18/21 09:15 Pulse 83 11/18/21 09:15 Resp 16 11/18/21 09:15 BP 116/65 11/18/21 09:15 Pulse Ox 96 11/18/21 09:15 O2 Del Method 11/18/21 09:15 Intake & Output 11/17/21 11/18/21 11/18/21 18:59 06:59 18:59 Intake Total 1000 / 1100 100 / 1100 50 / 50 Balance 1000 / 1100 100 / 1100 50 / 50 Intake: Intake, IV Amount 1000 / 1100 100 / 1100 50 / 50 0.9 % Sodium Chloride 1,000 ml 1000 / 1000 @ 999 mls/hr IV .Q1H1M [facility] Rx#: [id number] Piperacillin Sodium/Tazobactam 100 / 100 50 / 50 3.375 gm In 0.9 % Sodium Chloride 50 ml @ 100 mls/hr IV Q8H [facility] Rx#:[id number] Other: Weight 76.204 kg Weight 76.204 kg - Constitutional Present: no acute distress - Routine HEENT Exam Head: Present: normal inspection Eye: Present: EOMI, scleral icterus - Routine Neck Exam Present: supple. Absent: lymphadenopathy - Routine Respiratory Exam Present: CTAB. Absent: accessory muscle use - Routine Cardiovascular Exam Cardiovascular: Present: S1, S2 - Routine Abdominal Exam Present: soft - Routine Extremities Exam Present: pulses intact. Absent: calf tenderness - Routine Neurological Exam Present: alert, oriented X3 Hem/Onc Consult Result - Labs CBC & Chem 7: 11/18/21 05:06 11/18/21 05:07 Labs: Short CBC 11/18/21 Range/Units 05:06 WBC 7.8 (4.8-10.8) X10*3/uL Hgb 12.1 (12.0-16.0) g/dl Hct 36.3 L (37.0-47.0) % Plt Count 208 (160-400) X10*3/uL BMP 11/18/21 05:07 Sodium 138 Potassium 4.1 Chloride 109 H Carbon Dioxide 21 L BUN 7 L Creatinine 0.70 Calcium 8.3 L D Liver Function 11/18/21 Range/Units 05:07 Total Bilirubin 4.6 H (0.0-1.0) mg/dL Direct Bilirubin 3.5 H (0.0-0.5) mg/dL AST 423 H (5-31) U/L ALT 451 H (0-31) U/L Alkaline Phosphatase 856 H (39-117) U/L Albumin 3.5 (3.5-5.0) g/dL Urine 11/17/21 Range/Units 12:00 Urine Color YELLOW Urine Appearance CLEAR Urine pH 5.5 (5.0-8.0) Ur Specific [place] <= 1.005 (1.005-1.025) Urine Protein NEG (NEG-TRACE) MG/DL Urine Glucose (UA) NEG (NEG) MG/DL Assessment and Plan Patient Active problem list reviewed?: Yes (1) Liver mass Status: Acute Assessment and plan: 1. This is a pleasant 81-year-old woman presenting with obstructive jaundice, anorexia weight loss and liver masses consistent with malignancy. MRI abdomen performed 11/18/2021 shows diffuse thickening of gallbladder wall, 3 x 2 cm peripherally rim enhancing connection abutting gallbladder wall, extensive edema in the surrounding soft tissues extending into the liver. Multiple large ill-defined and nearly confluent peripherally rim enhancing T2 bright masses with an aggregate size of 4.5 x 5 x 5.5 cm. Mild central intrahepatic ductal dilatation with proximal bile duct measuring 0.9 cm. Extrinsic mass effect upon mid and distal common bile duct by abnormal gallbladder. Findings reported as-highly suspicious for gallbladder cancer or metastatic disease to liver, cholangiocarcinoma with metastatic extension to gallbladder, superimposed infection cannot be excluded. Patient and understand possible diagnosis. They would like to proceed with biopsy to ascertain pathological diagnosis. She has been on long-term anticoagulation after remote history of DVT which was actually related to travel. INR is supratherapeutic as she has superimposed coagulopathy of liver disease. warfarin has been discontinued, vitamin K has been given. She is waiting for IR guided biopsy. I discussed above plan as well as further management if she does have metastatic malignancy. Palliative, systemic therapy such as chemo therapy or immunotherapy can be offered. There is no role of surgery and limited role of liver directed radiotherapies as well. Further recommendations to follow. Patient can be discharged after biopsy and follow-up in the clinic. I thank you very much for this consultation. - Time Spent With Patient Time Spent with Patient (in minutes): 30
--- NOTE | 2021-11-18 14:50 | PC.NURSE ---
RADIOLOGY UNABLE TO DO LIVER BIOPSY R/T COUMADIN AND INR LEVEL . PROVIDER AWARE . PATIENT AWARE .
--- NOTE | 2021-11-18 14:55 | PC.NURSE ---
RN TO RN GIVEN TO ROGELIO . PATIENT AWARE OF PLAN OF CARE .
--- NOTE | 2021-11-18 15:33 | PM.CNGS ---
History of Present Illness Consult details Consult date: 11/17/21 Requesting physician: Frank Cornell Narrative: 81-year-old female patient presented to the emergency department with complaints of fever, chills, generalized malaise, upper abdominal discomfort mainly in the right flank, and 10 lb weight loss in the past 7 days. The patient is noted her eyes turning yellow and her stool becoming curtis colored. She also noted her urine becoming very dark. The symptoms have been slowly progressing especially over the last week. Upon presentation to the emergency department she was noted to be jaundiced. Abdominal examination revealed minimal abdominal tenderness and a negative Hernandez sign. Laboratories however were significant for markedly elevated bilirubin levels. WBC was normal. CT abdomen and pelvis revealed an apparent thickened gallbladder with multiple gallstones however apparent mass or abscess was noted in the adjacent liver. Subsequent ultrasound of the abdomen and MRI confirmed a liver change which was felt to be either abscess due to cholecystitis verses a liver mass possibly due to a gallbladder cancer or cholangiocarcinoma. Patient is admitted for further workup of this new finding. Review of Systems Review of Systems: Yes all other systems are reviewed and are negative Constitutional: Constitutional: Reports anorexia, Reports chills, Reports fatigue, Reports fever(s) and Reports poor appetite Cardiovascular: Cardiovascular: Denies chest pain, Denies chest pain at rest, Denies irregular heart rhythm and Denies dyspnea Respiratory: Respiratory: Denies chest congestion, Denies cough and Denies dyspnea Gastrointestinal: Gastrointestinal: Reports as per HPI, Denies melena, Denies change in bowel habits, Reports change in stool character, Reports GI cramping, Denies diarrhea, Reports nausea and Denies vomiting Genitourinary: Genitourinary: Reports as per HPI Endocrine: Endocrine: Reports fatigue Hematologic/Lymphatic: Hematologic/Lymphatic: Reports easy bleeding and Reports easy bruising PMFSH Past Medical History Medical History Depression DVT (deep venous thrombosis) Family History Family History Brother Lung cancer Social History Social History Advance Directives: No Advance Directives Information Provided: Yes service: No Current occupational status: retired Meds Allergies Allergy/AdvReac Type Severity Reaction Status Date / Time No Known Allergies Allergy Verified 11/17/21 08:54 Active Medications: Current Medications Acetaminophen (Acetaminophen 325 Mg Tablet) 650 mg PO Q4H PRN PRN Reason: mild pain Hydrocodone Bitart/Acetaminophen (Hydrocodone Bit/Acetam 5/325 Tablet) 1 tab PO Q4H PRN PRN Reason: moderate pain Amitriptyline HCl (Amitriptyline Hcl 25 Mg Tablet) 25 mg PO DAILY [facility] Last Admin: 11/18/21 08:59 Dose: 25 mg Piperacillin Sod/Tazobactam (Sod 3.375 gm/ Sodium Chloride) 50 mls @ 100 mls/hr IV Q8H [facility] Last Infusion: 11/18/21 09:43 Dose: Infused Melatonin (Melatonin 3 Mg Tablet) 6 mg PO BEDTIME PRN PRN Reason: Insomnia Morphine Sulfate (Morphine Sulfate 2 Mg/Ml Cartridge) 1 mg IVPUSH Q4H PRN; Protocol PRN Reason: severe pain Pharmacy Consult (Consult Rx Perform Med Rec) 1 each MISCELLANE ONCE PRN PRN Reason: Consult order Senna (Sennosides 8.6 Mg Tablet) 17.2 mg PO BEDTIME PRN PRN Reason: Constipation Sodium Chloride (0.9 % Sodium Chloride Flush 3 Ml Syringe) 3 ml IVFLUSH QSHIFT [facility] Last Admin: 11/18/21 09:01 Dose: 3 ml Home Medications Medication Instructions Recorded Confirmed Last Taken Type amitriptyline 25 mg tablet 1 tab DAILY 11/17/21 11/17/21 Unknown History celecoxib 200 mg capsule 1 cap PO DAILY 11/17/21 11/17/21 Unknown History warfarin 7.5 mg tablet 7.5 mg PO DAILY 11/17/21 11/17/21 Unknown History Physical Exam Vital Signs: Vital Signs: Last Vital Signs Temp 98.3 F 11/18/21 14:04 Pulse 90 11/18/21 14:04 Resp 14 11/18/21 14:04 BP 121/58 L 11/18/21 14:04 Pulse Ox 94 11/18/21 14:04 O2 Del Method 11/18/21 14:04 BMI result Body Mass Index 32.8 Const: General: no acute distress and well developed Nutritional Appearance: well nourished Orientation/consciousness: patient oriented x3 Limitations: no limitations HEENT: Head: Yes normocephalic and Yes atraumatic Ears: hearing grossly normal bilaterally Eyes: Sclerae: scleral abnormal (Scleral icterus) EOM: EOMs intact bilaterally Resp: Effort & Inspection: normal respiratory effort, no audible wheezes, no cough and no respiratory distress GI: Inspection: Yes normal to inspection Palpation (GI): Soft to palpation, Tenderness to palpation present (GI) (Right flank) not in the RUQ, Hernandez's sign negative and with no rebound tenderness and no masses Percussion: Yes normal to percussion Auscultation: normal bowel sounds Rectal Exam - Female: deferred Skin: General skin exam: no rashes or lesions noted Neuro: General: patient oriented x3 Extrem: General: Yes no clubbing, cyanosis or edema Results Labs Result diagrams: 11/18/21 05:06 11/18/21 05:07 Labs: Abnormal lab results 11/18/21 11/18/21 11/18/21 Range/Units 05:06 05:07 05:07 RBC 3.98 L (4.20-5.50) X10*6/uL Hct 36.3 L (37.0-47.0) % Neut % (Auto) 77.1 H (45-73) % Lymph % (Auto) 12.6 L (20-40) % Lymph # (Auto) 1.0 L (1.2-4.9) X10*3/uL PT (10.0-13.1) SEC INR (0.9-1.1) Chloride 109 H (96-108) mmol/L Carbon Dioxide 21 L (22-29) mmol/L BUN 7 L (9-16) mg/dL Calcium 8.3 L D (8.4-10.2) mg/dL Total Bilirubin 4.6 H (0.0-1.0) mg/dL Direct Bilirubin 3.5 H (0.0-0.5) mg/dL AST 423 H (5-31) U/L ALT 451 H (0-31) U/L Alkaline Phosphatase 856 H (39-117) U/L 11/18/21 Range/Units 05:07 RBC (4.20-5.50) X10*6/uL Hct (37.0-47.0) % Neut % (Auto) (45-73) % Lymph % (Auto) (20-40) % Lymph # (Auto) (1.2-4.9) X10*3/uL PT 100.1 H (10.0-13.1) SEC INR 8.0 H* (0.9-1.1) Chloride (96-108) mmol/L Carbon Dioxide (22-29) mmol/L BUN (9-16) mg/dL Calcium (8.4-10.2) mg/dL Total Bilirubin (0.0-1.0) mg/dL Direct Bilirubin (0.0-0.5) mg/dL AST (5-31) U/L ALT (0-31) U/L Alkaline Phosphatase (39-117) U/L Short CBC 11/18/21 Range/Units 05:06 WBC 7.8 (4.8-10.8) X10*3/uL Hgb 12.1 (12.0-16.0) g/dl Hct 36.3 L (37.0-47.0) % Plt Count 208 (160-400) X10*3/uL BMP 11/18/21 05:07 Sodium 138 Potassium 4.1 Chloride 109 H Carbon Dioxide 21 L BUN 7 L Creatinine 0.70 Calcium 8.3 L D Liver Function 11/18/21 Range/Units 05:07 Total Bilirubin 4.6 H (0.0-1.0) mg/dL Direct Bilirubin 3.5 H (0.0-0.5) mg/dL AST 423 H (5-31) U/L ALT 451 H (0-31) U/L Alkaline Phosphatase 856 H (39-117) U/L Albumin 3.5 (3.5-5.0) g/dL Urine 11/17/21 Range/Units 12:00 Urine Color YELLOW Urine Appearance CLEAR Urine pH 5.5 (5.0-8.0) Ur Specific [place] <= 1.005 (1.005-1.025) Urine Protein NEG (NEG-TRACE) MG/DL Urine Glucose (UA) NEG (NEG) MG/DL All other labs normal. Imaging Abdomen CT scan report/results: image reviewed CT scan - pelvis: image reviewed Abdominal ultrasound report/results: image reviewed Assessment and Plan (1) Liver mass: Status: Acute (2) Elevated liver function tests: Status: Acute (3) Cholangiocarcinoma: Status: Acute Plan Although the findings on CT and ultrasound seemed indicate acute cholecystitis, the patient's clinical examination is not consistent with acute cholecystitis. This large mass is very concerning for a gallbladder cancer or cholangiocarcinoma. Agree with IR guided liver biopsy. Lesion does not appear amenable to surgical resection. Appreciate Dr. More's input. Neoadjuvant treatment being considered. Will sign off; please re-consult if needed. Procedures Date of Service Date of Service: 11/18/21
--- NOTE | 2021-11-18 15:46 | MHC.CM.PN ---
Met with patient and her to discuss dc planning. Delivered IMM. Patient lives with her in 2 story home with two steps to enter. Bedroom on 2nd floor. Patient reports she is independent and climbs stairs without difficulty, does not use an assistive device for ambulation, and is independent all ADLs. She reports her HCP is her daughter, Araceli. Copy requested. Anticipate no need for services, if VNA need, patient would like [facility] referral. to drive home.
--- NOTE | 2021-11-18 22:15 | CONS_ITS ---
DATE OF SERVICE: 11/18/2021 REFERRING PHYSICIAN: Frank Cornell MD REASON FOR CONSULTATION: Transaminitis with liver lesion. 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 She was evaluated in the emergency department. Her laboratory studies were obtained, showing elevation of her total bilirubin at 4.6 with AST and ALT in the 400 to 500 range, and an alkaline phosphatase of 888. Imaging studies have been obtained including CT scanning, ultrasound, and MRI of the abdomen. This shows abnormal appearance to the gallbladder and liver, suggestive of malignancy, possibly gallbladder cancer with metastatic disease to the liver or cholangiocarcinoma, extending into the gallbladder. The patient has been seen in consultation by Dr. More and liver biopsy is planned. She is on anticoagulation for DVT and her INR is currently being corrected. The common bile duct on imaging has shown some mild central intrahepatic ductal dilation up to 9 mm with extrinsic mass effect on the mid and distal common bile duct by the gallbladder with the distal duct being decompressed and not well visualized. PAST MEDICAL HISTORY: 1. Depression. 2. DVT. CURRENT MEDICATIONS: Her current medication list is reviewed in the chart. ALLERGIES: THERE ARE NONE REPORTED. FAMILY HISTORY: This is reviewed with the patient and is noncontributory. SOCIAL HISTORY: There is no current tobacco, alcohol, or substance abuse. REVIEW OF SYSTEMS: SKIN: No pruritus. HEENT: Negative. CARDIOPULMONARY: No shortness of breath or chest pain. GASTROINTESTINAL: As above. GENITOURINARY: Negative. NEUROPSYCHIATRIC: Negative. PHYSICAL EXAMINATION: GENERAL: Shows a pleasant female, sitting comfortably in bed. VITAL SIGNS: Reviewed in the electronic medical record and are stable. She has no complaints of abdominal pain. SKIN: Shows rather mild icterus. HEENT: Shows mild scleral icterus. NECK: Without lymphadenopathy or thyromegaly. LUNGS: Clear. HEART: Shows a regular rate and rhythm. S1, S2. No murmur. ABDOMEN: Soft without focal masses or tenderness. Bowel sounds are present. No organomegaly is noted. EXTREMITIES: Without edema. LABORATORY DATA: Reviewed as are her imaging studies. IMPRESSION: Abnormal CT scan of the liver with elevated liver function tests. I agree with proceeding with of further evaluation of her abnormal scans with liver biopsy. At this time, there does not seem to be significant biliary obstruction, so I do not think ERCP is urgently needed. I discussed this with the patient and her . Thanks for asking me to see her. I will follow her in the hospital with you. MD ZAHRAA Cedillo/SAGRARIO / [phone]
[2021-11-19] MEDS: Piperacillin Sodium/Tazobactam 3.375 GM in 0.9 % Sodium Chloride 50 ML IV ×3 (00:34→18:10)
[2021-11-19] MEDS: 0.9 % Sodium Chloride Flush 3 ML SYRINGE IVFLUSH ×4 (00:34→21:41)
[2021-11-19 00:37] VITALS: BMI 33.9
[2021-11-19 03:35] VITALS: BP 111/55; PULSE 81; RESP 16; TEMP 36.5; O2SAT 96
[2021-11-19 07:13] LABS: INTERNATIONAL NORM RATIO 1.3 (0.9-1.1); Prothrombin Time 15.1 SEC (10.0-13.1)
[2021-11-19 07:34] VITALS: BP 114/64; PULSE 87; RESP 20; TEMP 36.9; O2SAT 99
[2021-11-19 07:38] LABS: Alanine Aminotransferase 479 U/L (0-31); Albumin Level 3.5 g/dL (3.5-5.0); Alkaline Phosphatase 913 U/L (39-117); Anion Gap 14 (12-20); Aspartate Amino Transferase 442 U/L (5-31); Bilirubin Total 8.2 mg/dL (0.0-1.0); Blood Urea Nitrogen 8 mg/dL (9-16); Calcium 8.6 mg/dL (8.4-10.2); Carbon Dioxide 24 mmol/L (22-29); Chloride 107 mmol/L (96-108); Creatinine Clr Calc Pharmacy 52.9; Estimated Glomerular Filt Rate > 60; Glucose Random 98 mg/dL (60-115); Potassium 4.6 mmol/L (3.3-5.1); Sodium 140 mmol/L (135-145)
[2021-11-19 11:22] VITALS: BP 115/56; PULSE 90; RESP 20; TEMP 36.5; O2SAT 94
--- NOTE | 2021-11-19 11:34 | P.PNIM_ITS ---
Subjective Subjective Date of Service: 11/19/21 Interval History: No pain Undergoing CT-buided biopsy tomorrow Aware of likely diagnosis of incurable CA of gallbladder or bile ducts Review of Systems Review of Systems: Yes all other systems are reviewed and are negative Physical Exam Vital Signs: Vital Signs: Last Vital Signs Temp 97.7 F 11/19/21 11:22 Pulse 90 11/19/21 11:22 Resp 20 11/19/21 11:22 BP 115/56 L 11/19/21 11:22 Pulse Ox 94 11/19/21 11:22 O2 Del Method 11/19/21 11:22 BMI result Body Mass Index 33.9 Gen: in no acute distress HEENT: sclera icteric, moist mucus membranes Neck: supple Lungs: clear to auscultation bilaterally Heart: regular rate and rhythm, no murmurs Abd: soft, non-tender, non-distended Ext: no edema Skin: warm/well-perfused, jaundiced Neuro: alert and oriented x3, no focal findings Psych: appropriate affect Objective Data Active Medications Acetaminophen (Acetaminophen 325 Mg Tablet) 650 mg PO Q4H PRN PRN Reason: mild pain Hydrocodone Bitart/Acetaminophen (Hydrocodone Bit/Acetam 5/325 Tablet) 1 tab PO Q4H PRN PRN Reason: moderate pain Amitriptyline HCl (Amitriptyline Hcl 25 Mg Tablet) 25 mg PO BEDTIME [facility] Last Admin: 11/18/21 21:55 Dose: 25 mg Documented By: DAVID Celecoxib (Celecoxib 200 Mg Capsule) 200 mg PO DAILY [facility] Piperacillin Sod/Tazobactam (Sod 3.375 gm/ Sodium Chloride) 50 mls @ 100 mls/hr IV Q8H [facility] Last Infusion: 11/19/21 09:57 Dose: 0 mls/hr Documented By: MARLA Melatonin (Melatonin 3 Mg Tablet) 6 mg PO BEDTIME PRN PRN Reason: Insomnia Morphine Sulfate (Morphine Sulfate 2 Mg/Ml Cartridge) 1 mg IVPUSH Q4H PRN; Protocol PRN Reason: severe pain Pharmacy Consult (Consult Rx Perform Med Rec) 1 each MISCELLANE ONCE PRN PRN Reason: Consult order Senna (Sennosides 8.6 Mg Tablet) 17.2 mg PO BEDTIME PRN PRN Reason: Constipation Sodium Chloride (0.9 % Sodium Chloride Flush 3 Ml Syringe) 3 ml IVFLUSH QSHIFT [facility] Last Admin: 11/19/21 09:50 Dose: 3 ml Documented By: MARLA Labs CBC & Chem 7: 11/18/21 05:06 11/19/21 06:36 Labs: Laboratory Results - last 24 hr 11/19/21 11/19/21 06:36 06:36 PT 15.1 H INR 1.3 H D Anion Gap 14 Estim Creat Clear Calc 52.9 Estimated GFR > 60 Random Glucose 98 Calcium 8.6 Total Bilirubin 8.2 H AST 442 H ALT 479 H Alkaline Phosphatase 913 H Total Protein 7.0 Albumin 3.5 Microbiology Microbiology Results: Microbiology 11/17/21 18:21 Blood Culture - Preliminary Blood - Venous No growth after 24 hours. 11/17/21 18:24 Blood Culture - Preliminary Blood - Venous No growth after 24 hours. Assessment and Plan (1) Liver mass: Status: Acute Plan hospital d#3 81yo F with remote hx DVT on warfarin presenting with weakness, jaundice, early satiety, acholic stools, and dark urine found to have elevated liver enzymes with mixed hepatocellular/cholestatic pattern; imaging with likely incurable gallbladder CA vs. cholangiocarcinoma with liver metastatses, less likely acute cholecystitis with associated pericholecystic abscesses with extension into the liver with multiple liver abscesses? # gallbladder/liver mass - GI, Heme/Onc, and Gen Surg consulted. Plan is for CT-guided biopsy tomorrow [INR 1.3 today] by IR, then outpt f/u with Heme/Onc [Dr More] to discuss treatment options # supratherapeutic INR # remote hx DVT - give 5 mg vitamin K IV on 11/18 to reverse warfarin in preparation for diagnostic procedure tomorrow; resume warfarin postprocedurally after discussion with IR # VTE ppx: SCDs In my clinical judgment, the patient requires continued hospitalization for the following reasons: biopsy, elevated INR Quality Stroke Does the patient have a stroke diagnosis?: No VTE Prior VTE?: No VTE Risk Level:: Medical - moderate - high VTE Device Contraindication: Treatment Not Indicated VTE Drug Contraindication: N/A - Med Ordered
[2021-11-19 15:19] VITALS: BP 149/69; PULSE 90; RESP 18; TEMP 36.7; O2SAT 94
[2021-11-19 19:26] VITALS: BP 122/58; PULSE 89; RESP 20; TEMP 36.7; O2SAT 98
[2021-11-19] MEDS: Amitriptyline HCl 25 MG TABLET PO (21:40)
[2021-11-19 23:27] VITALS: BP 120/56; PULSE 78; RESP 18; TEMP 36.2; O2SAT 99
[2021-11-20] VITALS (9 sets, daily range): BP systolic 107–139; BP diastolic 60–68; PULSE 72–94; RESP 16–20; TEMP 36.3–36.7; O2SAT 94–97
[2021-11-20] MEDS: Piperacillin Sodium/Tazobactam 3.375 GM in 0.9 % Sodium Chloride 50 ML IV ×3 (00:30→17:03)
[2021-11-20 11:28] LABS: Hematocrit 37.8 % (37.0-47.0); Hemoglobin 12.3 g/dl (12.0-16.0); Mean Corpuscular HGB Conc 32.5 g/dl (31.0-35.0); Mean Corpuscular Hemoglobin 29.9 pg (27.0-33.0); Mean Corpuscular Volume 91.7 fL (80.0-98.0); Mean Platelet Volume 10.1 fL (9.4-12.3); Platelet Count 200 X10*3/uL (160-400); Red Blood Count 4.12 X10*6/uL (4.20-5.50); Red Cell Distribution Width 13.4 % (11.0-16.0); White Blood Count 6.9 X10*3/uL (4.8-10.8)
[2021-11-20 11:37] LABS: INTERNATIONAL NORM RATIO 1.2 (0.9-1.1); Prothrombin Time 13.7 SEC (10.0-13.1)
--- NOTE | 2021-11-20 11:38 | P.PNIM_ITS ---
Subjective Subjective Date of Service: 11/20/21 Interval History: No pain Underwent CT-buided liver biopsy today Aware of likely diagnosis of incurable CA of gallbladder or bile ducts, slight pain at procedure site Review of Systems no n/v no abdominal pain Physical Exam Vital Signs: Vital Signs: Last Vital Signs Temp 97.9 F 11/20/21 10:00 Pulse 80 11/20/21 10:15 Resp 16 11/20/21 10:15 BP 127/61 11/20/21 10:15 Pulse Ox 96 11/20/21 10:15 O2 Del Method 11/20/21 10:15 O2 Flow Rate 3 11/20/21 09:15 BMI result Body Mass Index 33.9 Const: Other: Gen: in no acute distress HEENT: sclera icteric, moist mucus membranes Neck: supple Lungs: clear to auscultation bilaterally Heart: regular rate and rhythm, no murmurs Abd: soft, non-tender, non-distended Ext: no edema Skin: warm/well-perfused, jaundiced Neuro: alert and oriented x3, no focal findings Psych: appropriate affect Objective Data Active Medications Acetaminophen (Acetaminophen 325 Mg Tablet) 650 mg PO Q4H PRN PRN Reason: mild pain Hydrocodone Bitart/Acetaminophen (Hydrocodone Bit/Acetam 5/325 Tablet) 1 tab PO Q4H PRN PRN Reason: moderate pain Amitriptyline HCl (Amitriptyline Hcl 25 Mg Tablet) 25 mg PO BEDTIME [facility] Last Admin: 11/19/21 21:40 Dose: 25 mg Documented By: BENITO Celecoxib (Celecoxib 200 Mg Capsule) 200 mg PO DAILY [facility] Piperacillin Sod/Tazobactam (Sod 3.375 gm/ Sodium Chloride) 50 mls @ 100 mls/hr IV Q8H [facility] Last Infusion: 11/20/21 01:06 Dose: 0 mls/hr Documented By: BENITO Ibuprofen (Ibuprofen 600 Mg Tablet) 600 mg PO Q6H PRN PRN Reason: Pain, Moderate (Pain Scale 4-6 Melatonin (Melatonin 3 Mg Tablet) 6 mg PO BEDTIME PRN PRN Reason: Insomnia Morphine Sulfate (Morphine Sulfate 2 Mg/Ml Cartridge) 1 mg IVPUSH Q4H PRN; Protocol PRN Reason: severe pain Pharmacy Consult (Consult Rx Perform Med Rec) 1 each MISCELLANE ONCE PRN PRN Reason: Consult order Senna (Sennosides 8.6 Mg Tablet) 17.2 mg PO BEDTIME PRN PRN Reason: Constipation Sodium Chloride (0.9 % Sodium Chloride Flush 3 Ml Syringe) 3 ml IVFLUSH QSHIFT [facility] Last Admin: 11/19/21 21:41 Dose: 3 ml Documented By: BENITO Labs CBC & Chem 7: 11/20/21 11:20 11/20/21 11:20 Labs: Laboratory Results - last 24 hr 11/20/21 11:20 MCV 91.7 MCH 29.9 MCHC 32.5 RDW 13.4 Plt Count 200 MPV 10.1 Absolute Nucleated RBC 0.000 Nucleated RBC % (auto) 0.0 Microbiology Microbiology Results: Microbiology 11/17/21 18:21 Blood Culture - Preliminary Blood - Venous No growth after 48 hours. 11/17/21 18:24 Blood Culture - Preliminary Blood - Venous No growth after 48 hours. Assessment and Plan (1) Liver mass: Status: Acute Plan 81yo F with remote hx DVT on warfarin presenting with weakness, jaundice, early satiety, acholic stools, and dark urine found to have elevated liver enzymes with mixed hepatocellular/cholestatic pattern; imaging with likely incurable gallbladder CA vs. cholangiocarcinoma with liver metastatses, less likely acute cholecystitis with associated pericholecystic abscesses with extension into the liver with multiple liver abscesses? # gallbladder/liver mass - GI, Heme/Onc, and Gen Surg consulted. Had CT-guided biopsy today, by IR, then outpt f/u with Heme/Onc [Dr More] to discuss treatment options # supratherapeutic INR, INR is now 1.2 # remote hx DVT - down with vit K, will restart tomorrow, day after biopsy # VTE ppx: SCDs In my clinical judgment, the patient requires continued hospitalization for the following reasons: biopsy and post biopsy monitoring, likely dc tomorrow Quality Stroke Does the patient have a stroke diagnosis?: No VTE Prior VTE?: No VTE Risk Level:: Medical - moderate - high VTE Device Contraindication: Treatment Not Indicated VTE Drug Contraindication: N/A - Med Ordered
[2021-11-20] MEDS: HYDROcodone Bit/Acetam 5/325 TABLET 1 TAB PO ×2 (11:50→17:03)
[2021-11-20] MEDS: 0.9 % Sodium Chloride Flush 3 ML SYRINGE IVFLUSH ×3 (11:52→22:05)
[2021-11-20 12:18] LABS: Alanine Aminotransferase 488 U/L (0-31); Albumin Level 3.6 g/dL (3.5-5.0); Alkaline Phosphatase 925 U/L (39-117); Anion Gap 13 (12-20); Aspartate Amino Transferase 442 U/L (5-31); Bilirubin Total 9.1 mg/dL (0.0-1.0); Blood Urea Nitrogen 10 mg/dL (9-16); Calcium 8.5 mg/dL (8.4-10.2); Carbon Dioxide 24 mmol/L (22-29); Chloride 106 mmol/L (96-108); Creatinine Clr Calc Pharmacy 56.4; Estimated Glomerular Filt Rate > 60; Glucose Random 94 mg/dL (60-115); Potassium 4.3 mmol/L (3.3-5.1); Sodium 139 mmol/L (135-145); Total Protein 7.1 g/dL (6.5-8.0)
--- NOTE | 2021-11-20 12:43 | MHC.CM.PN ---
per rounds pt not ready for dc pt will be having a biopsy and has increased inr dc plan remains home
[2021-11-20 13:07] LABS: Alpha Fetoprotein 20.3 ng/mL
[2021-11-20 15:59] LABS: Glucose, Whole Blood 116 mg/dL (60-115)
[2021-11-20] MEDS: Amitriptyline HCl 25 MG TABLET PO (22:05)
[2021-11-21] MEDS: Piperacillin Sodium/Tazobactam 3.375 GM in 0.9 % Sodium Chloride 50 ML IV ×3 (01:36→16:17)
[2021-11-21 03:59] VITALS: BP 137/67; PULSE 84; RESP 15; TEMP 36.5; O2SAT 97
[2021-11-21 06:47] LABS: INTERNATIONAL NORM RATIO 1.2 (0.9-1.1); Prothrombin Time 13.8 SEC (10.0-13.1)
[2021-11-21 07:36] VITALS: BP 137/64; PULSE 93; RESP 18; TEMP 36.3; O2SAT 95
[2021-11-21] MEDS: Celecoxib 200 MG CAPSULE PO (10:14)
[2021-11-21] MEDS: 0.9 % Sodium Chloride Flush 3 ML SYRINGE IVFLUSH ×3 (10:15→21:00)
[2021-11-21 16:00] VITALS: BP 137/82; PULSE 89; RESP 18; TEMP 35.9; O2SAT 94
[2021-11-21 16:21] LABS: Alanine Aminotransferase 482 U/L (0-31); Albumin Level 3.9 g/dL (3.5-5.0); Alkaline Phosphatase 936 U/L (39-117); Aspartate Amino Transferase 409 U/L (5-31); Bilirubin Direct 7.5 mg/dL (0.0-0.5); Total Protein 7.7 g/dL (6.5-8.0)
[2021-11-21] MEDS: Amitriptyline HCl 25 MG TABLET PO (21:00)
[2021-11-21 23:25] VITALS: BP 133/60; PULSE 80; RESP 18; TEMP 36.7
[2021-11-22 07:14] LABS: INTERNATIONAL NORM RATIO 1.2 (0.9-1.1); Prothrombin Time 13.7 SEC (10.0-13.1)
[2021-11-22 07:23] LABS: Alanine Aminotransferase 431 U/L (0-31); Albumin Level 3.5 g/dL (3.5-5.0); Alkaline Phosphatase 854 U/L (39-117); Aspartate Amino Transferase 374 U/L (5-31); Bilirubin Direct 7.2 mg/dL (0.0-0.5); Bilirubin Total 9.6 mg/dL (0.0-1.0)
[2021-11-22 08:00] VITALS: BP 112/55; PULSE 84; RESP 18; TEMP 36.6; O2SAT 98
[2021-11-22] MEDS: 0.9 % Sodium Chloride Flush 3 ML SYRINGE IVFLUSH (08:02)
[2021-11-22] MEDS: Celecoxib 200 MG CAPSULE PO (08:09)
--- NOTE | 2021-11-22 09:17 | P.DS_ITS ---
DS: Providers Provider Date of Service: 11/22/21 Date of admission: 11/17/21 23:27 Primary care physician: Unknown Physician Consults: 11/17/21 23:27 Consult to Gastroenterology Routine Consulting Provider: Zeina Diego Reason for consultation: Transaminitis/liver lesion Consult to General Surgery Routine Consulting Provider: Henry Mahoney Reason for consultation: Acute cholecystitis Consult to Hematology / Oncology Routine Consulting Provider: Stacey More Reason for consultation: liver lesion DS: Diagnosis Discharge Diagnosis (1) Liver mass: Status: Acute DS: Summary Hospital Course Hospital Course: Chief Complaint: Generalized weakness 81-year-old female with a past medical history of depression, history of DVT on Coumadin; presented to the hospital today with a chief complaint of generalized weakness.? Patient reports that over the past 1 week she has been not feeling well, generally weak and tired; mentions that she has intermittent episodes of subjective fevers associated with chills.? Also mentioned that she noticed her urine is dark and the stool is pale; reports she has decreased appetite and has lost 10 lb in the past 7 days; denies any abdominal discomfort.? Denies any nausea vomiting diarrhea.? Denies any urinary frequency urgency or dysuria.? Patient denies any cough or sputum production.? Mentioned that her daughter noticed that her eyes are becoming yellow, jaundiced; hence decided to come to the ER for further evaluation.? Patient denies any chest pain palpitations lightheadedness or dizziness.? Review of all other systems is negative except mentioned above ER course: Per ER team patient noted to be icteric; on labs noted to have elevated liver enzymes; CT scan consistent with possible cholecystitis; patient was empirically given Zosyn.? Discussed with general surgery who evaluated the patient and mentioned that it is less likely cholecystitis; also concern for possible liver lesions consistent with malignancy.? Recommended admission to the medicine service for further evaluation. Hospital course: 81yo F with remote hx DVT on warfarin presented with weakness, jaundice, early satiety, acholic stools, and dark urine found to have elevated liver enzymes with mixed hepatocellular/cholestatic pattern. [facility] showed the following Markedly abnormal appearance of the gallbladder and adjacent liver as discussed above. In the acute setting and presence of gallstones, acute cholecystitis with associated pericholecystic abscesses with extension into the liver with multiple liver abscesses could have this appearance. However, in discussing this case with Dr. Hall, the patient's presentation is not typical for acute cholecystitis with no significant elevation in white count or fever noted. And in reviewing the ultrasound, the imaging appearance and the liver is not consistent with liver abscesses and would favor solid masses. In this setting, these findings are then highly suspicious for gallbladder cancer with metastatic disease to liver or cholangiocarcinoma with metastatic extension to the gallbladder. Superimposed infection cannot be excluded. Close clinical correlation and surgical consult is requested. She has been empirically treated with Zosyn, she has not been having fever or chills, normal WBC and no clinical symptoms of cholecystitis or abscess, blood cultures are negative. She had biopsy on 11/20 and result pending. She has been seen by GI and Surgery with no plan for intervention. Her Bilirubin has steadily risen to a highest of 10 as of 11/21 but has come down to 9 tday. She has been seen by from oncology and will follow up on outpatient basis for biopsy result and further treatment plan. Will repeat lab next week ? # supratherapeutic INR of 8, was given vitamin K and has come down, presently 1.2 She is supposed to be on couamdin for remote DVT and probably no longer needed but now will likely malignancy her risk is higher and therefore will restart couamdin and to follow up with PCP and oncologist for this. I discussed discharge plann with the family and the whole family and they feel comfortable with the plan Time Spent with Patient Time attestation: Total time spent providing and/or coordinating discharge services: Discharge coordination time: Greater than 30 minutes Quality: Safe Use of Opioids Does Pt have an Active Cancer Diagnosis on the Problem List?: No Quality: Stroke Does the patient have a stroke diagnosis?: No Physical Exam Vital Signs: Vital Signs: Last Vital Signs Temp 97.9 F 11/22/21 08:00 Pulse 84 11/22/21 08:00 Resp 18 11/22/21 08:00 BP 112/55 L 11/22/21 08:00 Pulse Ox 98 11/22/21 08:00 O2 Del Method 11/22/21 08:00 O2 Flow Rate 96 11/21/21 23:25 BMI result Body Mass Index 33.9 DS: Data Data Completed and Pending Pending studies at discharge: Pending at discharge 11/20/21 09:08 Surgical Path [Surgical] [PTH] Routine Labs on day of discharge: Laboratory Results - last 24 hr 11/21/21 11/22/21 11/22/21 15:40 06:33 06:33 PT 13.7 H INR 1.2 H Total Bilirubin 10.0 H 9.6 H Direct Bilirubin 7.5 H 7.2 H AST 409 H 374 H ALT 482 H 431 H Alkaline Phosphatase 936 H 854 H Total Protein 7.7 7.0 Albumin 3.9 3.5 Preliminary micro results at discharge 11/17/21 18:21 Blood Culture - Preliminary Blood - Venous No growth after 48 hours. 11/17/21 18:24 Blood Culture - Preliminary Blood - Venous No growth after 48 hours. 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 Referrals: Stacey More MD [Physician] - 1 Week Physician,Tonja J [Primary Care Provider] - 1 Week Discharge Medications: Continued celecoxib 200 mg capsule 1 cap PO DAILY amitriptyline 25 mg tablet 1 tab BEDTIME warfarin 7.5 mg Tablet 7.5 mg PO DAILY Discharge Orders: Discharge Order (Routine); Ordered 11/22/21 Ordered By: Edwardo Hardy Diet: Advance to usual diet Activity on Discharge: As tolerated Stand Alone Forms: Patient Portal Discharge page Other Ambulatory Orders: Liver Panel (Routine) Timeframe: [id number] Facility: [facility] - Location: Laboratory Ordered By: Edwardo Hardy Care Plan Goals: Treatment of jaundice and liver mass Health Concerns: Jaundice, liver mass, Plan of Treatment: To follow up with Dr. More next week to go over biopsy result and treatment plan Follow up with your Doctor in a week, call for appointment resume coumadin and follow with coumadin clinic as before check labs next week (Tuesday) Assessment: as above
--- NOTE | 2021-11-22 09:49 | MHC.CM.PN ---
pt dcd home no skilled servceis ordered by
== END 2021-11-22 12:21 | disposition home or self-care (01) | DRG 436 ==
LOC: HO.ED 15:58 → HO.EDOVER 11-18 00:11 → HO.IMC 11-18 19:37
PROVIDERS: Family Medicine; Internal Medicine; Radiology Diagnostic Radiology; Admitting Provider Hospitalist; Emergency Provider Emergency Medicine; PCP Nurse Practitioner Adult Health; Visit Provider Internal Medicine
PROC: 0FB13ZX Excision of Right Lobe Liver, Percutaneous Approach, Diagnostic (ICD-10-PCS; principal; 2021-11-20 08:00)
DX: C23 Malignant neoplasm of gallbladder (principal); C78.7 Secondary malignant neoplasm of liver and intrahepatic bile duct; D68.4 Acquired coagulation factor deficiency; F32.A Depression, unspecified; Z20.822 Contact with and (suspected) exposure to COVID-19; Z86.718 Personal history of other venous thrombosis and embolism; Z79.01 Long term (current) use of anticoagulants; Z79.899 Other long term (current) drug therapy
CPT/HCPCS: 36415; 47000; 74176; 74183; 76705; 77012; 80048; 80053; 80076; 81003; 81445; 82105; 82378; 82947; 83605; 85025; 85027; 85610; 86704; 86706; 86709; 86803; 87040; 87340; 87635; 88307; 88313; 88341; 88342; 88360; 88374; 96361; 96365; 96375; 99152; 99284; A9585; J2543; J3430